=== PATIENT | female | born 1985 | race Caucasian/White ===

== ENCOUNTER → 2017-02-13 | Outpatient (CLI) | payer BC ==
[~2017-02-13] MED LIST: CIPR-9 PO; DICY10 PO; IBUP800 PO; LORC10TA24 PO; ORSYTAB PO; OXYC-360 PO; PERC5TAB12 PO; PREN0.01 PO; RANI1TAB5 PO; VENTAER INH; VENTOLIN INHALER HHN; ZANTTAB9 PO
[2017-02-13 11:58] LABS: HEMATOCRIT 38.3 % (35.0-46.0); MEAN CELL VOLUME 83.8 FL (80.0-100.0); MEAN CORPUSCULAR HEMOGLOBIN 28.5 PG (27.0-34.0); PLATELET COUNT 320 TH/MM3 (150-450); RED BLOOD COUNT 4.57 MIL/MM3 (4.00-5.30); RED CELL DISTRIBUTION WIDTH 13.2 % (11.6-17.2); REVIEW FLAG FINAL; WHITE BLOOD COUNT 8.3 TH/MM3 (4.0-11.0)
[2017-02-13 12:28] LABS: ANION GAP 6 MEQ/L (5-15); BICARBONATE 26.6 MEQ/L (21.0-32.0); BLOOD UREA NITROGEN 12 MG/DL (7-18); CHLORIDE 104 MEQ/L (98-107); GLOMERULAR FILTRATION RATE 87 ML/MIN (>89); GLUCOSE,FASTING 77 MG/DL (74-99); POTASSIUM 3.8 MEQ/L (3.5-5.1); SODIUM (NA) 137 MEQ/L (136-145)
[2017-02-13 12:42] LABS: BHCG SCREEN QUALITATIVE LESS THAN 1 MIU/ML (0-5)
== END ==
LOC: CPRE 09:48
PROVIDERS: ATTEND Obstetrics & Gynecology
DX: N81.6 Rectocele (principal); Z01.812 Encounter for preprocedural laboratory examination
CPT/HCPCS: 36415; 80048; 84703; 85027

== ENCOUNTER → 2017-02-18 | Day surgery (SDC) | payer BC ==
[~2017-02-18] VITALS: Ht 165.1 cm; Wt 102.2 kg
[~2017-02-18] MED LIST changes: +*MEPERIDINE 25 MG INJ VIAL PERIprocedural Use ONLY ONE; +*ONDANSETRON 4 MG VIAL PERIprocedural Use ONLY ONE; +*morphine SULFATE 8 MG/ML PERIprocedure ONLY ONE; +CHLORHEXIDINE GLUCONATE 2 % 1 PACK (2 CLOTHS) TOPICAL PRN; +ESTROGENS CONJUGATED VAG CREA 15 APPL/30 GM TUBE VAGINAL ONE; +FAMOTIDINE 20 MG/2 ML VIAL IV SCH; -IBUP800 PO; +INSULIN HUMAN REGULAR 1,000 UNITS/10 ML VIAL SQ PRN; +KETAMINE HCL 500 MG/5 ML VIAL ONE; +KETOROLAC TROMETHAMINE 30 MG/ML (IVP) VIAL IV PUSH ONE; +LACTATED RINGER'S 1000 ML INJ 1,000 ML IV ONE; +LACTATED RINGER'S 1000 ML IV PRN; +METOPROLOL TARTRATE 25 MG TAB PO PRN; +MIDAZOLAM HCL 2 MG/2 ML VIAL IV SCH; +MORPHINE SULFATE 4 MG/ML INJ IV PRN; +ONDANSETRON HCL 4 MG/2 ML VIAL IV PUSH ONE; +ONDANSETRON HCL 4 MG/2 ML VIAL IV PUSH PRN; +ONDANSETRON HCL 4 MG/2 ML VIAL IV PUSH SCH; -OXYC-360 PO; +POVIDONE IODINE 5% (ANTISEPSIS KIT) 4 APPLICATIONS EACH NARE PRN; -PREN0.01 PO; +PROPOFOL 200 MG/20 ML AMP IV ONE; +SODIUM CHLORID 0.9% 500 ML IV PRN; -VENTOLIN INHALER HHN; -ZANTTAB9 PO; +ceFAZolin 1,000 MG/NS 100 ML IV SCH; +fentaNYL CITRATE 250 MCG/5 ML AMP ONE; +oxyCODONE/ACETAMINOPHEN 5 MG/325 MG TAB PO PRN
[2017-02-18 06:33] VITALS: BP 131/79; PULSE 76; RESP 20; TEMP 99.7; O2SAT 99
[2017-02-18 11:33] VITALS: BP 121/72; PULSE 71; RESP 16; TEMP 96; O2SAT 96
--- NOTE | 2017-02-19 13:03 | MP ---
cc: EDISON FERNÁNDEZ DATE OF SURGERY 02/18/2017 PREOPERATIVE DIAGNOSIS Rectocele POSTOPERATIVE DIAGNOSIS Rectocele and paravaginal cyst. PROCEDURE Rectocele repair and excision of paravaginal cyst. SURGEON Edison Fernández MD ANESTHESIA General ESTIMATED BLOOD LOSS 100 cc COMPLICATIONS None FINDINGS The patient had a small to moderate size rectocele. What appeared to be part of the rectocele was actually an approximately 2 x 2 cm benign-appearing mucous filled paravaginal cyst to the left of the midline of the posterior vaginal wall. There was no significant enterocele or cystocele. DESCRIPTION OF PROCEDURE The patient brought into the operating room and following general anesthesia was placed in the dorsolithotomy position. Her vagina, abdomen and perineum were prepped and draped. A small perineal incision was made and then a midline posterior vaginal incision was made to a point above the rectocele. The fascia was dissected off the vaginal mucosa in doing so it became clear that a portion of the rectocele was actually a paravaginal cyst. We attempted to dissect the cyst out intact, but it ruptured and released a mucoid type material. Culture of the cyst was performed. We then excised the entire cyst wall and sent it with a portion of vaginal mucosa to the pathology lab. The fascia was reapproximated in the midline with a series of interrupted #2-0 Vicryl stitches. Prior to doing this, we did a rectal examination which confirmed no entry of the rectum. The fascia was closed as noted above with 2-0 Vicryl interrupted stitch. The area was irrigated and good hemostasis was noted and the vaginal mucosa was closed with a running locking 2-0 Vicryl stitch. The small perineal incision was closed as per a second-degree episiotomy. The area was then again inspected and good hemostasis was noted. The patient was then taken to the Recovery Room in good condition with all counts correct. She will be discharged home when stable and alert to be followed up in one week in our office. Discharge medication is Percocet. She is given instructions on physical activity and instructed to resume a regular diet as tolerated. MD LACEY Hsu/AMOR /8:43 AM /12:55 PM
== END | disposition home or self-care (01) ==
LOC: HSDC 05:54
PROVIDERS: ATTEND Obstetrics & Gynecology
DX: N81.6 Rectocele (principal); N89.8 Other specified noninflammatory disorders of vagina; J45.909 Unspecified asthma, uncomplicated; K21.9 Gastro-esophageal reflux disease without esophagitis; E66.9 Obesity, unspecified; Z68.37 Body mass index [BMI] 37.0-37.9, adult
CPT/HCPCS: 00902; 45560; 57135; 86850; 86900; 86901; 87070; 87205; 88305; J0690; J1885; J2175; J2270; J2405; J3010; J7120; 88302